=== PATIENT | male | born 1980 | race African-American/Black ===

== ENCOUNTER 2016-07-18 11:53 | Emergency (ER) | payer SELFPAY ==
[~2016-07-18] VITALS: Ht 182.9 cm; Wt 109.8 kg
[2016-07-18 14:42] VITALS: BP 116/75
== END 2016-07-18 14:42 | disposition home or self-care (01) ==
LOC: ED 11:53
DX: Z00.00 Encounter for general adult medical examination without abnormal findings (principal)